=== PATIENT | female | born 1940 | race African-American/Black ===

== ENCOUNTER → 2017-09-02 | Outpatient (CLI) | payer MEDICARE, OTHER ==
[~2017-09-02] MED LIST: ASPIRIN 325MG325 MG PO; ATORVASTATIN CA40 MG PO; CARVEDILOL3.125 M1 PO; CITRATE OF1.75 GM/31 PO; CLOPIDOGREL75 M2 PO; FLONASE16 GM; HYDROCHLOROTHIA25 M1 PO; KEFLEX500 MG PO; LACTULOSE10 GM/15 M PO; LEVOTHYROXIN0.025 M1 PO; LISINOPRIL10 MG PO; MECLIZINE 25MG25 MG PO; METOPROLOL SUCC50 M2 PO; NORCO 325 MG-51 TAB PO; PREDNISONE 20MG20 MG PO; ULTRAM50 MG PO
--- NOTE | 2017-09-02 12:30 | CARDIOVASCULAR REPORT ---
"Venous Exam Indications: 729.81 Swelling of limb. IMPRESSIONS Mild, acute deep vein thrombosis involving the Internal jugular and subclavian veins of the left upper extremity History: Swelling in the left upper extremity. Edema of the left arm. Risk factors: Hypertension. 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 She states she noticed swelling around the pacemaker today. She denies any pain at the site. Left upper extremity venous duplex. Doppler flow study including spectral analysis, color and doyle scale imaging. Location: Vascular laboratory. Patient status: Outpatient. CRITICAL FINDINGS - Reported to: MATILDE Conklin - Read back and verified. - 09/02/17 - 12:25 - LUE positive for DVT in the internal jugular vein and subclavian vein Tables: Venous flow and imaging: + + + + |Location |Overall |Flow properties | + + + + |Left internal jugular|Totally occluded |Absent; noncompressible | + + + + |Left subclavian |Totally occluded |Noncompressible | + + + + |Left axillary |Normal morphology|Normal phasicity; spontaneous; | | | |normal augmentation; | | | |compressible | + + + + (Report amended ) Electronically signed by: Nirmal Turner [id number]"
== END ==
LOC: RT 11:46
DX: T81.718A Complication of other artery following a procedure, not elsewhere classified, initial encounter (principal)